=== PATIENT | male | born 1940 | race Caucasian/White ===

== ENCOUNTER 2021-10-21 13:35 | Inpatient (IN) | payer BC, OTHER ==
[~2021-10-21] VITALS: Ht 170.2 cm; Wt 99.8 kg
[2021-10-21 14:43] LABS: Basophils # (auto) 0 10 ^3/uL (0-0.2); Eosinophils # (auto) 0.1 10 ^3/uL (0-0.8); Lymphocytes # (auto) 0.9 10 ^3/uL (0.4-5.4); Monocytes # (auto) 0.4 10 ^3/uL (0-1.3); Nucleated Red Blood Cells % 0.1 %; Red Cell Distribution Width 17.7 % (11.8-14.3)
[2021-10-21 14:45] LABS: Basophils % (auto) 0.3 % (0.0-2.0); Hematocrit 30.2 % (41.0-53.0); Hemoglobin 10.2 g/dL (13.5-17.5); Lymphocytes % (auto) 12.6 % (10.0-50.0); Mean Corpuscular Hemoglobin 44.7 pg (28.0-32.0); Mean Corpuscular Hgb Conc. 33.8 g/dL (32.0-36.0); Mean Corpuscular Volume 132.2 fL (80.0-100.0); Monocytes % (auto) 4.8 % (0.0-12.0); Neutrophils % (auto) 81.3 % (37.0-80.0); Red Blood Cells 2.29 10^6/uL (4.5-5.90); White Blood Cell 7.3 10^3/uL (4.4-10.8)
[2021-10-21] MEDS ORDERED: SODIUM CHLORIDE 0.9% 1,000 ML IV ONE (14:45)
[2021-10-21] MEDS ORDERED: fentaNYL CITRATE 100 MCG/2 ML VL IV ONE (14:45)
[2021-10-21] MEDS ORDERED: VANCOMYCIN 1GM/250ML 250 ML IV ONE (14:45)
[2021-10-21 14:55] LABS: INR 1.04 (0.9-1.15); Partial Thromboplastin Time 22.5 sec (23.6-33.0)
[2021-10-21 14:58] LABS: Albumin 3.9 g/dL (3.4-5.0); BUN/Creatinine Ratio 19.9; Magnesium 2.5 mg/dL (1.6-2.6); Potassium 3.7 mmol/L (3.5-5.1)
[2021-10-21 15:00] LABS: Bilirubin, Total 0.9 mg/dL (0.2-1.0)
[2021-10-21 17:00] VITALS: BP 104/68
[2021-10-21] MEDS ORDERED: SODIUM CHLORIDE 0.9% 2,000 ML IV ONE (17:15)
[2021-10-21] MEDS ORDERED: MORPHINE SULFATE INJ 2 MG/ml SYRG IV PRN (17:45)
[2021-10-21] MEDS ORDERED: NITROGLYCERIN 0.4 MG SL TAB SL PRN (17:45)
[2021-10-21] MEDS: MAGNESIUM SULFATE 1GM/100ML 100 ML IV SCH ×2 (18:38→20:10)
[2021-10-21] MEDS ORDERED: SODIUM CHLORIDE 0.9% 1,000 ML IV SCH (19:30)
[2021-10-21] MEDS ORDERED: ASPirin 81 mg TAB PO ONE (19:30)
[2021-10-21] MEDS ORDERED: ATORVASTATIN 20 MG TAB PO ONE (19:30)
[2021-10-21] MEDS ORDERED: CLOPIDOGREL BISULFATE 75 MG TAB PO ONE (19:30)
[2021-10-21] MEDS ORDERED: ENOXAPARIN SOD 40 MG/0.4 ML SYRINGE SC ONE (19:30)
[2021-10-21] MEDS ORDERED: ONDANSETRON HCL 4 MG/2 ML VIAL IV PRN (20:15)
[2021-10-21] MEDS ORDERED: HYDROcodone-ACET 5/325MG TAB PO PRN (20:15)
[2021-10-21] MEDS ORDERED: TETANUS-DIPTH-ACEL PERTUSSIS 0.5ML SYR Tdap IM ONE (20:15)
[2021-10-21] MEDS ORDERED: DEXTROSE (50%) 50ML SYRG IV PRN (20:15)
[2021-10-21] MEDS ORDERED: hydrALAZINE HCL 20 MG/ML VL IV PRN (20:15)
[2021-10-21] MEDS ORDERED: LORazepam 0.5 MG TAB PO PRN (20:15)
[2021-10-21] MEDS ORDERED: SILVER SULFADIAZINE 1 % TOPICAL CREAM 50GM TOP ONE (20:15)
[2021-10-21] MEDS ORDERED: ACETAMINOPHEN 325 MG TAB PO PRN (20:15)
[2021-10-21] MEDS ORDERED: DOCUSATE SOD 100 MG CAP PO PRN (20:15)
[2021-10-21 20:59] LABS: Magnesium 2.4 mg/dL (1.6-2.6); Phosphorus 2.5 mg/dL (2.5-4.90)
[2021-10-21 21:00] VITALS: BP 153/87
[2021-10-21] MEDS ORDERED: cefTRIAXone 1GM/50ML D5W 50 ML IV SCH (21:00)
[2021-10-21 21:11] LABS: INR 1.01 (0.9-1.15); Partial Thromboplastin Time 21.6 sec (23.6-33.0)
[2021-10-21] MEDS ORDERED: InsuLIN REG 1unit/0.01ml Soln (100units/ml) SC SCH (22:00)
[2021-10-21] MEDS ORDERED: ACCU-CHEK COMFORT CURVE STRIP VI SCH (22:00)
[2021-10-21] MEDS ORDERED: CLINDAMYCIN 600MG IV 50 ML IV SCH (22:00)
[2021-10-21] MEDS ORDERED: ATORVASTATIN 20 MG TAB PO SCH (22:00)
[2021-10-21] MEDS ORDERED: IPRATROPIUM BROM 0.5 MG/2.5ML INH SOL NEB SCH (22:00)
[2021-10-22] MEDS ORDERED: InsuLIN REG 1unit/0.01ml Soln (100units/ml) SC SCH (07:00)
[2021-10-22] MEDS ORDERED: FAMOTIDINE (10MG/ML) 2ML VL IV SCH (10:00)
[2021-10-22] MEDS ORDERED: ENOXAPARIN SOD 40 MG/0.4 ML SYRINGE SC SCH (10:00)
[2021-10-22] MEDS ORDERED: CLOPIDOGREL BISULFATE 75 MG TAB PO SCH (10:00)
[2021-10-22] MEDS ORDERED: SILVER SULFADIAZINE 1 % TOPICAL CREAM 50GM TOP SCH (10:00)
[2021-10-22] MEDS ORDERED: ASPirin 81 mg TAB PO SCH (10:00)
[2021-10-23 08:49] LABS: Folate (Folic Acid) 21.84 ng/mL (5.38-24)
== END 2021-10-21 22:02 | disposition left against medical advice (07) | DRG 922 ==
LOC: EDBD 13:35 → ER 13:35 → OVERFLOW 17:34
PROVIDERS: ADMIT Hospitalist; ATTEND Hospitalist
DX: T67.5XXA Heat exhaustion, unspecified, initial encounter (principal); N17.0 Acute kidney failure with tubular necrosis; D84.9 Immunodeficiency, unspecified; I13.0 Hypertensive heart and chronic kidney disease with heart failure and stage 1 through stage 4 chronic kidney disease, or unspecified chronic kidney disease; D53.9 Nutritional anemia, unspecified; N18.31 Chronic kidney disease, stage 3a; I50.9 Heart failure, unspecified; W01.0XXA Fall on same level from slipping, tripping and stumbling without subsequent striking against object, initial encounter; S93.432A Sprain of tibiofibular ligament of left ankle, initial encounter; J44.9 Chronic obstructive pulmonary disease, unspecified; E11.42 Type 2 diabetes mellitus with diabetic polyneuropathy; G30.9 Alzheimer's disease, unspecified; F02.80 Dementia in other diseases classified elsewhere, unspecified severity, without behavioral disturbance, psychotic disturbance, mood disturbance, and anxiety; E78.5 Hyperlipidemia, unspecified; F17.200 Nicotine dependence, unspecified, uncomplicated; E86.0 Dehydration; R55 Syncope and collapse; I25.10 Atherosclerotic heart disease of native coronary artery without angina pectoris; G31.9 Degenerative disease of nervous system, unspecified; H40.9 Unspecified glaucoma; E11.51 Type 2 diabetes mellitus with diabetic peripheral angiopathy without gangrene; E11.22 Type 2 diabetes mellitus with diabetic chronic kidney disease; E66.01 Morbid (severe) obesity due to excess calories; Y93.89 Activity, other specified; X30.XXXA Exposure to excessive natural heat, initial encounter; Y92.89 Other specified places as the place of occurrence of the external cause; Y99.8 Other external cause status; Z68.34 Body mass index [BMI] 34.0-34.9, adult; Z79.899 Other long term (current) drug therapy
CPT/HCPCS: 36415; 70450; 71045; 73502; 73610; 80053; 82550; 82607; 82746; 83735; 83874; 83880; 84100; 84439; 84443; 84484; 85025; 85379; 85610; 85730; 93005; 93925; 93970; 96365; 96375; G0378